=== PATIENT | female | born 1995 | race American Indian/Alaskan Native ===

== ENCOUNTER 2016-07-05 19:02 | Emergency (ER) | payer MEDICAID, OTHER ==
[2016-07-06] MEDS ORDERED: DELTASONE PO ONE (00:32)
[2016-07-06] MEDS ORDERED: BENADRYL PO ONE (00:34)
--- NOTE | 2016-07-06 00:44 | Emergency Department Report ---
HPI - General Chief Complaint: Skin Rash Time Seen by Provider: 07/06/16 00:11 - HPI HPI: Patient is a 21-year-old female presents to ED complaining of itchy rash that developed yesterday. Patient states rash appeared on her face and has spread down her neck to her chest region. Patient states her rash was itching in nature and mildly red. Patient states she does not recall coming into contact with anything or eating anything different patient states she does not take any medication on his allergic to any medication. She denies fever/chills/nausea/vomiting/abdominal pain/chest pain/shortness of breath or any other problems ED Past Medical Hx - Past Medical History Previous Medical History?: No Hx Hypertension: No Hx Congestive Heart Failure: No Hx Diabetes: No Hx Deep Vein Thrombosis: No Hx Renal Disease: No Hx Sickle Cell Disease: No Hx Seizures: No Hx Asthma: No Hx COPD: No Hx HIV: No - Surgical History Past Surgical History?: Yes Additional Surgical History: tonsils and addnoids - Social History Smoking Status: Never Smoker Substance Use Type: None - Medications Home Medications: Home Medications Medication Instructions Recorded Confirmed Last Taken Type Prednisone [predniSONE 5 mg (6-Day 5 mg PO .TAPER #1 tab.ds.pk 07/06/16 Unknown Rx Pack, 21 Tabs)] Triamcinolone 0.5% [Kenalog 0.5% 1 applic TP TID #1 tube 07/06/16 Unknown Rx CREAM] hydrOXYzine HCL [Atarax] 25 mg PO DAILY PRN #24 tablet 07/06/16 Unknown Rx ED Review of Systems ROS: Stated complaint: RASH Other details as noted in HPI Constitutional: denies: chills, fever Eyes: denies: eye pain, eye discharge, vision change ENT: denies: ear pain, throat pain, dental pain, hearing loss Respiratory: denies: cough, shortness of breath, wheezing Cardiovascular: denies: chest pain, palpitations Endocrine: no symptoms reported Gastrointestinal: denies: abdominal pain, nausea, diarrhea Genitourinary: denies: urgency, dysuria, discharge Musculoskeletal: denies: back pain, joint swelling, arthralgia Skin: denies: rash, lesions Neurological: denies: headache, weakness, paresthesias Psychiatric: denies: anxiety, depression Hematological/Lymphatic: denies: easy bleeding, easy bruising Physical Exam - Physical Exam Vital Signs: Vital Signs 07/05/16 19:23 Temperature 98.5 F Pulse Rate 94 H Respiratory 18 Rate Blood Pressure 131/85 O2 Sat by Pulse 100 Oximetry Physical Exam: GENERAL: Alert and oriented x3, no apparent distress, Normal Gait, atraumatic. HEAD: Head is normocephalic and a-traumatic. NOSE: Nose symetrical, Nontender,Nares appeared normal. MOUTH:Mouth is well hydrated and without lesions. Tonsils nonerythematous or swollen, Uvula midline, Tongue not elevated. Mucous membranes are moist. Posterior pharynx clear, no exudate or lesions. Patent airways. NECK: Supple. Non edematous, No carotid bruits. No lymphadenopathy or thyromegaly. No C-spine tenderness LUNGS: Symetrical with respiration, No wheezing, no rales or crackles, CTAB. HEART: S1, S2 present, regular rate and rhythm without murmur, no rubs, no gallops. ABDOMEN: No organomegaly was noted,Positive bowel sounds, soft, and non- distended. . Nontender to palpation on all Quadrants, NO CVA tenderness. SKIN: Warm and dry, generalized erythematous. pin- point lesions on lower face and neck pain chest region. No lesions, No ulceration or induration present. ED Course Vital Signs 07/05/16 19:23 Temperature 98.5 F Pulse Rate 94 H Respiratory 18 Rate Blood Pressure 131/85 O2 Sat by Pulse 100 Oximetry ED Medical Decision Making - Medical Decision Making 21-year-old female presents with allergic dermatitis. ED course: Patient received prednisone and Benadryl and ED. Discussed the patient and take her medication as prescribed Discussed the patient to follow up with primary care physician as referred. Discussed the patient's symptoms worsen to return to ED. Vital signs are normal patient is in no acute distress Patient understands instructions given and will follow up Critical care attestation.: If time is entered above; I have spent that time in minutes in the direct care of this critically ill patient, excluding procedure time. ED Disposition Clinical Impression: Rash and nonspecific skin eruption Disposition: DISCHARGED TO HOME OR SELFCARE Is pt being admited?: No Does the pt Need Aspirin: No Condition: Stable Instructions: Eczema (ED), Acute Rash (ED) Prescriptions: hydrOXYzine HCL [Atarax] 25 mg PO DAILY PRN #24 tablet PRN Reason: Itching Prednisone [predniSONE 5 mg (6-Day Pack, 21 Tabs)] 5 mg PO .TAPER #1 tab.ds.pk Triamcinolone 0.5% [Kenalog 0.5% CREAM] 1 applic TP TID #1 tube Referrals: PRIMARY CARE, [Primary Care Provider] - 3-5 Days [facility] [Outside] - 3-5 Days [facility] [Outside] - 3-5 Days Forms: Accompanied Note, Work/School Release Form(ED) Time of Disposition: 00:47
[2016-07-06 01:20] VITALS: BP 118/68
== END 2016-07-06 01:20 | disposition home or self-care (01) ==
LOC: ED 19:02
DX: R21 Rash and other nonspecific skin eruption (principal)
CPT/HCPCS: 99282; J7512